=== PATIENT | female | born 1990 | race Caucasian/White ===

== ENCOUNTER 2021-08-29 20:30 | Inpatient (IN) | payer MEDICAID, SELFPAY ==
--- NOTE | 2021-08-29 20:47 | W.ED.PSYCH ---
HPI - Psych General: Chief Complaint: Psychiatric Symptoms Stated Complaint: SI Time Seen by Provider: 08/29/21 20:46 History of Present Illness: HPI Narrative: Ms. Hicks is a 31-year-old lady without significant past medical history presents emergency department with psychiatric concerns. She reports symptoms have been worse since approximately April. She has had increased social stressors and describes difficulty coping. She endorses significant depression and her symptoms of been worsening the point that she now has thoughts of self-harm. She does have a history of near completion of suicide and describes 3 previous episodes that were this severe in the past. She has previously, remotely, seen a psychiatric care provider and has been told that she has bipolar disorder. She saw a counselor today who additionally thought that she has bipolar. She was on medication during the second episode however did not tolerate the effects and has not been on it for a number of years. She otherwise denies medical complaints. No other specific exacerbating or alleviating factors identified. Review of Systems General: Reports: 10 or more systems reviewed and unremarkable except in HPI and below Physical Exam Narrative: EXAM NARRATIVE: GENERAL/CONSTITUTIONAL - well-appearing. No acute distress. Eyes -no scleral icterus, no conjunctival injection ENMT - Atraumatic external nose and ears. Moist mucous membranes NECK - supple. trachea midline CARDIOVASCULAR - regular rate and rhythm. RESPIRATORY -clear to auscultation bilaterally. ABDOMEN/GI - Nontender/Nondistended. MSK - Extremities without obvious deformity or tenderness to palpation SKIN - Warm, Dry NEURO - alert and appropriately oriented. Moves all extremities equally. PSYCH -depressed mood and affect Course ED course: - Patient was seen and evaluated by me at bedside - Patient placed on cardiac monitors, IV access obtained - Initial evaluation notable for exam as noted above, nontoxic, no acute distress. - Labs notable for potassium 3.3, replenishment ordered. Salicylate, Tylenol, and alcohol negative. UDS positive for opiates and marijuana - Based on ED evaluation at this point there is no obvious condition that would preclude the patient from inpatient management of psychiatric concerns. - Psychiatry service contacted and agreed admit the patient. Vital Signs: Vital signs: Vital Signs Temperature 98.1 F 09/02/21 13:39 Pulse Rate 65 09/02/21 13:39 Respiratory Rate 16 09/02/21 13:39 Blood Pressure 104/63 09/02/21 13:39 Pulse Oximetry 97 09/02/21 13:39 MDM - Psych Medical Records: Attestation: I reviewed the patient's medical records. Lab Data: Attestation: I reviewed the patient's lab results. Labs: Lab Results 08/29/21 08/29/21 08/29/21 21:00 21:00 21:00 WBC RBC Hgb Hct MCV MCH MCHC RDW Plt Count MPV Neut % (Auto) Lymph % (Auto) [place] % (Auto) Eos % (Auto) Baso % (Auto) Neut # (Auto) Lymph # (Auto) [place] # (Auto) Eos # (Auto) Baso # (Auto) Nucleated RBC % (a uto) Nucleated RBCs # Sodium Potassium Chloride Carbon Dioxide Anion Gap BUN Creatinine GFR Calculation Glucose Calculated Osmolal ity Calcium Total Bilirubin AST ALT Alkaline Phosphata se Total Protein Albumin Globulin TSH HCG, Qual Negative (Negative) Urine Color Yellow (Yellow) Urine Appearance Clear (CLEAR) Urine pH 5 (5-7) Ur Specific Gravit y 1.015 (1.005-1.030) Urine Protein Neg (Negative) Urine Glucose (UA) Norm (Normal) Urine Ketones Negative (Negative) Urine Blood Neg (Negative) Urine Nitrate Negative (Negative) Urine Bilirubin Neg (Negative) Urine Urobilinogen Norm mg/dL mg/dL (Negative) Ur Leukocyte Jeanne ase Negative (Negative) Salicylates Urine Opiates Scre en Positive ng/mL H ng/mL (Negative) Acetaminophen Ur Barbiturates Sc reen Negative ng/mL ng /mL (Negative) Ur Phencyclidine S crn Negative ng/mL ng /mL (Negative) Ur Amphetamines Sc reen Negative ng/mL ng /mL (Negative) U Benzodiazepines Scrn Negative ng/mL ng /mL (Negative) Urine Cocaine Scre en Negative ng/mL ng /mL (Negative) U Marijuana (THC) Screen Positive ng/mL H ng/mL (Negative) Ethyl Alcohol 08/29/21 08/29/21 22:18 22:18 WBC 8.3 10^3/uL 10^3/ uL (4.0-10.0) RBC 4.13 10^6/uL 10^6 /uL (4.1-5.3) Hgb 12.4 g/dL g/dL (11.5-15.3) Hct 36.8 % L % (37.0-47.0) MCV 89.1 fl fl (81-99) MCH 30.0 pg pg (28.0-34.0) MCHC 33.7 g/dL g/dL (30.0-36.0) RDW 11.9 % L % (12.1-15.1) Plt Count 212 10^3/cmm 10^3 /cmm (130-400) MPV 10.9 fL H fL (7.4-10.4) Neut % (Auto) 39.1 % % Lymph % (Auto) 52.3 % % [place] % (Auto) 6.4 % % Eos % (Auto) 1.6 % % Baso % (Auto) 0.5 % % Neut # (Auto) 3.24 10^3/uL 10^3 /uL (1.8-7.7) Lymph # (Auto) 4.3 10^3/uL 10^3/ uL (0.8-4.8) [place] # (Auto) 0.5 10^3/uL 10^3/ uL (0.2-0.9) Eos # (Auto) 0.1 10^3/uL 10^3/ uL (0.0-0.8) Baso # (Auto) 0.0 10^3/uL 10^3/ uL (0.0-0.1) Nucleated RBC % (a uto) 0 % % Nucleated RBCs # 0.0 /100WBC /100W BC Sodium 140 mmol/L mmol/L (136-145) Potassium 3.3 mmol/L L mmol /L (3.5-5.1) Chloride 103 mmol/L mmol/L (98-107) Carbon Dioxide 27 mmol/L mmol/L (22-29) Anion Gap 13.3 (5-19) BUN 9 mg/dL mg/dL (6-20) Creatinine 0.6 mg/dL mg/dL (0.5-0.9) GFR Calculation 116.6 mL/min mL/m in (90-130) Glucose 90 mg/dL mg/dL (65-115) Calculated Osmolal ity 288 mOsm/kg mOsm/ kg (285-295) Calcium 9.4 mg/dL mg/dL (8.5-10.5) Total Bilirubin 0.2 mg/dL mg/dL (0.15-1.2) AST 12 U/L U/L (0-32) ALT 10 U/L U/L (0-33) Alkaline Phosphata se 91 IU/L IU/L (35-105) Total Protein 7.0 g/dL g/dL (6.6-8.7) Albumin 4.4 g/dL g/dL (3.5-5.2) Globulin 2.6 g/dL g/dL (1.3-4.6) TSH 1.16 uIU/mL uIU/m L (0.27-4.20) HCG, Qual Urine Color Urine Appearance Urine pH Ur Specific Gravit y Urine Protein Urine Glucose (UA) Urine Ketones Urine Blood Urine Nitrate Urine Bilirubin Urine Urobilinogen Ur Leukocyte Jeanne ase Salicylates < 0.3 mg/dL L mg/ dL (3-10) Urine Opiates Scre en Acetaminophen < 5.0 ug/mL L ug/ mL (10-30) Ur Barbiturates Sc reen Ur Phencyclidine S crn Ur Amphetamines Sc reen U Benzodiazepines Scrn Urine Cocaine Scre en U Marijuana (THC) Screen Ethyl Alcohol < 10 mg/dL mg/dL (0-10) EKG Data^: EKG 1: Attestation: I personally reviewed and interpreted this EKG as follows: EKG interpretation date: 08/29/29 EKG interpretation time: 17:24 Interpretation: Twelve-lead EKG shows a regular rhythm at a rate of 73. NV interval 172, QRS duration 92, QTc 445. Right axis deviation. Interpretation: Sinus rhythm. Discharge Plan Discharge Patient Disposition: Admitted As Inpatient Admit Provider: Dany Loya Condition: Stable Discharge Diet: Regular Discharge Activity: Resume usual activity Coding Level of Care Code ED General Magistrate for [facility] [place]
[2021-08-29 20:49] VITALS: BP 137/99; PULSE 124; RESP 18; TEMP 36.3; O2SAT 97; BMI 33.7
[2021-08-29 21:15] LABS: Add Urine Microscopic? NO; Charge for UA Resulting for Rev
[2021-08-29 21:34] LABS: Bilirubin Urine Neg (Negative); Blood Urine Neg (Negative); Glucose Urine UA Norm (Normal); Ketones Urine Negative (Negative); Nitrate Urine Negative (Negative); Protein Urine Neg (Negative); Specific Gravity, Urine 1.015 (1.005-1.030); Urine Appearance Clear (CLEAR); Urine Color Yellow (Yellow); pH Urine 5 (5-7)
[2021-08-29 21:35] LABS: Leukocyte Esterase Urine Negative (Negative); Urobilinogen Urine Norm (Negative)
[2021-08-29 21:36] LABS: Amphetamines Screen Urine Negative (Negative); Barbiturates Screen Urine Negative (Negative); Benzodiazepines Screen Urine Negative (Negative); Cocaine Screen Urine Negative (Negative); Opiate Screen Urine Positive (Negative); PCP Screen Urine Negative (Negative); THC Screen Urine Positive (Negative)
[2021-08-29 21:38] LABS: HCG Qualitative Urine. Negative (Negative)
[2021-08-29 22:25] LABS: Basophils % 0.5 %; Eosinophils # 0.1 10^3/uL (0.0-0.8); Eosinophils % 1.6 %; Hematocrit 36.8 % (37.0-47.0); Hemoglobin 12.4 g/dL (11.5-15.3); Lymphocytes # 4.3 10^3/uL (0.8-4.8); Lymphocytes % 52.3 %; Mean Corpuscular HGB Conc 33.7 g/dL (30.0-36.0); Mean Corpuscular Volume 89.1 fl (81-99); Mean Platelet Volume 10.9 fL (7.4-10.4); Monocytes # 0.5 10^3/uL (0.2-0.9); Monocytes % 6.4 %; Neutrophils # 3.24 10^3/uL (1.8-7.7); Neutrophils % 39.1 %; Nucleated Red Blood Cells % 0 %; Platelet Count 212 10^3/cmm (130-400); Red Blood Count 4.13 10^6/uL (4.1-5.3); Red Cell Distribution Width 11.9 % (12.1-15.1); White Blood Count 8.3 10^3/uL (4.0-10.0)
[2021-08-29] MEDS: ketorolac 30 mg/mL INJ 15 MG IVP (22:48)
[2021-08-29] MEDS: sodium chloride 0.9% 1,000 ML 999 ML IV (22:48)
--- NOTE | 2021-08-29 22:50 | ECG_ITS ---
[facility] Test Date: 2021-08-29 Pat Name: Jonn Hicks Department: Room: Gender: Female Supervisor Communications And Signals: : 1990 Requested By: Mario Amezquita Order Number: [id number] Manda MD: ROSALIND LYLE Measurements Intervals [place] Rate: 73 P: 146 NV: 172 QRS: 124 QRSD: 92 T: 116 QT: 402 QTc: 445 Interpretive Statements SINUS RHYTHM LEFT POSTERIOR FASCICULAR BLOCK [QRS AXIS > 109, INFERIOR Q] No previous ECG available for comparison Electronically Signed On 09-01-2021 0:14:01 CDT by ROSALIND LYLE [email or web address]
[2021-08-29 22:53] VITALS: BP 112/64; PULSE 84; RESP 20; O2SAT 98
[2021-08-29 22:59] LABS: Alanine Aminotransferase 10 U/L (0-33); Albumin Level 4.4 g/dL (3.5-5.2); Alkaline Phosphatase 91 IU/L (35-105); Anion Gap 13.3 (5-19); Aspartate Amino Transferase 12 U/L (0-32); Blood Urea Nitrogen 9 mg/dL (6-20); Calcium 9.4 mg/dL (8.5-10.5); Carbon Dioxide 27 mmol/L (22-29); Chloride 103 mmol/L (98-107); Globulin 2.6 g/dL (1.3-4.6); Glomerular Filtration Rate 116.6 mL/min (90-130); Glucose 90 mg/dL (65-115); Osmolality Calculated 288 mOsm/kg (285-295); Potassium 3.3 mmol/L (3.5-5.1); Sodium 140 mmol/L (136-145); Thyroid Stimulating Hormone 1.16 uIU/mL (0.27-4.20); Total Bilirubin 0.2 mg/dL (0.15-1.2)
[2021-08-29 23:02] LABS: Acetaminophen < 5.0 ug/mL (10-30); Alcohol Level < 10 mg/dL (0-10); Salicylate < 0.3 mg/dL (3-10)
[2021-08-29] MEDS: potassium chloride ER 20 mEq Tablet 40 MEQ PO (23:58)
[2021-08-30] MEDS: lidocaine 2% viscous 15 ML, aluminum-mag hydrox-simethicon 30 ML, sucralfate oral liq 1 GM PO (00:02)
[2021-08-30 00:25] VITALS: BP 112/64
[2021-08-30 01:08] VITALS: BP 150/98; PULSE 84; RESP 17; TEMP 37.1; O2SAT 93
--- NOTE | 2021-08-30 03:08 | PC.ADMIT ---
2923 [facility] Admission Note: The patient,Jonn Hicks,31 y/o, was given written information regarding hospital policies, unit procedures and contact persons. Patient's smoking status: . Vital Signs - 8 hr 08/29/21 20:49 08/29/21 22:53 08/30/21 00:25 Temperature 97.3 F L Pulse Rate [Monitor] 124 H 84 Respiratory Rate 18 20 H Blood Pressure 112/64 Blood Pressure [Right Arm] 137/99 112/64 Pulse Oximetry 97 98 Ms. Hicks is a 31-year-old lady without significant past medical history presents emergency department with psychiatric concerns. She reports symptoms have been worse since approximately April. She has had increased social stressors and describes difficulty coping. She endorses significant depression and her symptoms of been worsening the point that she now has thoughts of self-harm.. She has previously, remotely, seen a psychiatric care provider and has been told that she has bipolar disorder. She saw a counselor today who additionally thought that she has bipolar.. She otherwise denies medical complaints. 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 She states it feels like her Zoloft is not helping. She has been aggressive toward her and reports having ?anger issues.? 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 Patient is a good historian and tearful during admission. Upon assessment patient has good eye contact, is alert/oriented x4 and tearful. Skin assessment is unremarkable. Piercings removed and put with personal property. Patient changed into cotton scrubs and provided snack. During assessment she stated she has had depression for several years and has in the past been diagnosed with depression, bipolar and anxiety. She reports in the past she had SI and thought about putting a gun to her head. She sought treatment at that time. She denies any further attempts. She has had 2 previous psych admissions to [facility] in [facility] approx. 7 and 9 yrs ago. She states she has been on Zoloft for several years and the dose is currently 150mg. Patient states she would like to speak to the Physician about possibly changing her medication. She did drive to [place], [place] earlier in the day and saw a therapist who suggested she drive straight to our ER for Psych eval/admission. Therapist felt it would not be a good idea for patient to be around her children while she is having new onset anger issues. Patient states she is afraid she will get angry enough to hurt her children. Patient reports that her hsb is very supportive and takes good care of their 3 children ages 5, 2 ? and 10 months. She reports her Mother is her closest support person. Patient states she is relieved to be here and is looking forward to a consult regarding her medications. Patient oriented to unit and retired directly to bed. Will continue to monitor and follow plan of care. Q 15 min safety checks per protocol.
[2021-08-30 06:00] VITALS: BP 120/82; PULSE 88; RESP 17; O2SAT 97
[2021-08-30] MEDS: BuSPIRONE 10 mg Tablet 7.5 MG PO ×2 (09:32→18:37)
[2021-08-30] MEDS: sertraline 100 mg Tablet PO (09:32)
[2021-08-30] MEDS: cyclobenzaprine 10 mg Tablet PO (09:34)
[2021-08-30 14:00] VITALS: BP 127/85; PULSE 91; RESP 17; TEMP 36.8; O2SAT 97
--- NOTE | 2021-08-30 14:04 | P.NPUHP_ITS ---
Providers/Chief Complaint Admitting Physician: Dany Loya MD Chief Complaint: Psychiatric Symptoms HPI NPU History of Present Illness Jonn Hicks is a 31 year old female with a history of bipolar disorder mostly untreated, who was admitted for a mixed manic episode that endangers the emotional wellbeing of her children. The ED note states: Ms. Hicks is a 31-year-old lady without significant past medical history presents emergency department with psychiatric concerns. She reports symptoms have been worse since approximately April. She has had increased social stressors and describes difficulty coping. She endorses significant depression and her symptoms of been worsening the point that she now has thoughts of self-harm. She does have a history of near completion of suicide and describes 3 previous episodes that were this severe in the past. She has previously, remotely, seen a psychiatric care provider and has been told that she has bipolar disorder. She saw a counselor today who additionally thought that she has bipolar. She was on medication during the second episode however did not tolerate the effects and has not been on it for a number of years. She otherwise denies medical complaints. No other specific exacerbating or alleviating factors identified. The patient describes developing depression after the of her [id number]. In the last few weeks she has been extremely angry and describes flight of ideas, pressured speech, and decreased need for sleep. She has had periods of euphoria with increased energy and goal-directed activity, along with racing thoughts, pressured speech, risky behavior, and flight of ideas. She is also had depression with the thought that she would kill herself if she did not have 3 children. No active suicidal ideation. She denies any homicidal ideation, but does admit to thinking sometimes that it would be a relief if her and children . She denies auditory and visual hallucinations. The patient says she had a psychiatric evaluation with Dr. Lopez in [place], [place], who diagnosed bipolar disorder. She has been hospitalized for bipolar disorder twice before, 7 and 9 years ago. The patient went through therapy when her parents when she was 7 or 8 years old. She was in therapy for 3- 1/2 years with a therapist from [place], [place] whom she really liked. The therapy ended 4 years ago, when the therapist moved away. Current stressors include having 3 children, and building a new house. Psychiatric history: As above. Substance use history: The patient says she is a social drinker. She smokes marijuana daily. Family history: Her mother takes psychiatric medication, but is private and has not revealed the medications or her diagnoses. The patient's father has anxiety and anger but has not been evaluated. The patient thinks he has a drinking problem. She denies suicide attempts or completions in the family. Psychosocial history: The patient lives in [place], [place] with her and 3 children who are all under 6. 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 Legal history: No legal difficulties. Medical history: She has chronic pain for which she takes Flexeril. She also has a history of chronic and migraine headaches. Meds NPU Home Medications Medication Instructions Recorded Confirmed Last Taken Type buspirone 7.5 mg PO BID 08/30/21 08/30/21 Unknown History cyclobenzaprine 10 mg PO TID PRN 08/30/21 08/30/21 Unknown History sertraline 100 mg PO DAILY 08/30/21 08/30/21 Unknown History Allergies Allergy/AdvReac Type Severity Reaction Status Date / Time No Known Allergies Allergy Verified 08/29/21 20:49 Mental Status Exam MSE Comments: I met with the patient in the day room, and she was dressed in hospital scrubs and appropriately groomed. She was was quite emotional at times but cooperative, interactive, and made good eye contact. No psychomotor agitation or retardation Speech is at a regular rate and rhythm, normal volume, good articulation, not pressured Alert, oriented to person, place, time, and situation Attention and concentration were intact to exam Memory is adequate for the interview Mood is depressed and angry. Affect is labile, angry and tearful at times. Thought process has flight of ideas at times. Thought content: No auditory or visual hallucinations, no suicidal ideation or homicidal ideation. No delusions or paranoia are noted. Insight and judgment are fair. Impulse control is limited by emotional lability. Vitals/I&O/Wt Last Vital Signs Temp 98.7 F 08/30/21 01:08 Pulse 88 08/30/21 06:00 Resp 17 08/30/21 06:00 BP 120/82 08/30/21 06:00 Pulse Ox 97 08/30/21 06:00 10/29/21 10/30/21 10/30/21 22:59 06:59 14:59 Intake Total 1000 / 1000 Balance 1000 / 1000 Weight last 48 hrs Weight 94.801 kg Data NPU : 08/29/21 22:18 08/29/21 22:18 A&P Assessment and plan (1) Bipolar disorder, current episode mixed, moderate: Status: Acute (2) Marijuana abuse, continuous: Status: Acute (3) Anxiety disorder, unspecified: Status: Acute Additional A&P Information This is a 31 year old female with a history of bipolar disorder mostly untreated, who was admitted for a mixed manic episode that endangers the emotional wellbeing of her children. On the day prior to admission, she was angry and yelling at her , which frightened and upset her children. She is not in control of her emotions. She has had 2 previous hospitalizations for similar symptoms and has been treated with Depakote and Seroquel for periods of time. But she has gone off of her medications each time. She has been treated with BuSpar and Zoloft which was recently increased from 50 to 100 mg daily. It may have increased her manic symptoms. RECOMMENDATION AND PLAN: 1. Continue Buspar. Discontinue Zoloft. Add Abilify 10 mg daily for mood stabilization. 2. Continue every 15 minute checks for safety. 3. Encourage individual, group and milieu therapies. Involuntary Hold Information 96 Hour Hold: 96 Hour Involuntary Admission: No Attestations NPU Medical Necessity Statement*: Psychiatric hospitalization is medically necessary to prevent access to lethal means, to reevaluate medication, and to coordinate a safe discharge. Patient will be in the hospital for over 2 midnights. Likely length of stay is 3 to 5 days. Coding Level of Care Code Acute Rivet Sorter for Teddy Simmons Diagnoses Bipolar disorder, current episode mixed, moderate F31.62 Marijuana abuse, continuous F12.10 Anxiety disorder, unspecified F41.9
[2021-08-30] MEDS: hyDROXYzine 25 mg Capsule 50 MG PO (14:21)
[2021-08-30] MEDS: ARIPiprazole 10 mg Tablet PO (14:21)
[2021-08-30 20:31] VITALS: BP 126/89; PULSE 86; RESP 16; TEMP 37; O2SAT 98
[2021-08-31 06:00] VITALS: BP 101/82; PULSE 92; RESP 15; TEMP 36.9; O2SAT 96; BMI 33.7
[2021-08-31] MEDS: cyclobenzaprine 10 mg Tablet PO (10:48)
[2021-08-31] MEDS: ARIPiprazole 10 mg Tablet PO (10:48)
[2021-08-31] MEDS: BuSPIRONE 10 mg Tablet 7.5 MG PO ×2 (10:48→17:04)
[2021-08-31] MEDS: hyDROXYzine 25 mg Capsule 50 MG PO ×2 (12:26→18:04)
--- NOTE | 2021-08-31 13:15 | P.NPUPN_ITS ---
Subjective NPU Subjective: Interval history: Patient presents today reporting she is feeling a little better and she had been when she arrived. She reports that Dr. Loya gave her Abilify and BuSpar and she reports that this is helping her with her symptoms. She reports that she knows she needs to get some therapy so she can start to address some of the issues that led to the hospitalization. Mental Status Exam MSE Comments: This is an obese white female with hospital scrubs on with limited grooming and adequate eye contact. Purple hair. Cooperative with exam in no acute distress. Speech was decreased rate and volume. Mood described as a little bit better, affect subdued. Thought process organized. Thought content: Patient denied suicidal homicidal ideation, there were no delusions reported or noted, she denied any auditory or visual hallucinations. Attention and concentration were intact and memory appeared reliable but none were formally tested. She is alert and oriented x3. Insight and judgment appear fair, impulse control is limited. Vitals/I&O/Wt Last Vital Signs Temp 98.5 F 08/31/21 06:00 Pulse 92 08/31/21 06:00 Resp 15 08/31/21 06:00 BP 101/82 08/31/21 06:00 Pulse Ox 96 08/31/21 06:00 Weight last 48 hrs Weight 94.801 kg Weight 94.801 kg Data NPU : 08/29/21 22:18 08/29/21 22:18 A&P Additional A&P Information (1) Bipolar disorder, current episode mixed, moderate: (2) Marijuana abuse, continuous: (3) Anxiety disorder, unspecified: Additional A&P Information This is a 31 year old female with a history of bipolar disorder mostly untreated, who was admitted for a mixed manic episode that endangers the emotional wellbeing of her children. On the day prior to admission, she was angry and yelling at her , which frightened and upset her children. She is not in control of her emotions. She has had 2 previous hospitalizations for similar symptoms and has been treated with Depakote and Seroquel for periods of time. But she has gone off of her medications each time. She has been treated with BuSpar and Zoloft which was recently increased from 50 to 100 mg daily. It may have increased her manic symptoms. RECOMMENDATION AND PLAN: 1. Continue current medication. 2. Continue every 15 minute checks for safety. 3. Encourage individual, group and milieu therapies. Involuntary Hold Information 96 Hour Hold: 96 Hour Involuntary Admission: No Attestations NPU Medical Necessity Statement*: Psychiatric hospitalization is medically necessary to prevent access to lethal means, to reevaluate medication, and to coordinate a safe discharge. Likely length of stay is 2-4 days. Coding Level of Care Code Acute Bolt Machine Operator for Teddy Simmons
[2021-08-31 14:00] VITALS: BP 121/69; PULSE 73; RESP 17; TEMP 37; O2SAT 98
[2021-08-31] MEDS: blistex lip oint 7 gm Tube 1 APPLIC TOPICAL (17:04)
[2021-08-31 20:11] VITALS: BP 109/79; PULSE 98; RESP 15; TEMP 36.9; O2SAT 95
[2021-09-01 06:00] VITALS: BP 117/71; PULSE 72; RESP 15; TEMP 36.8; O2SAT 97
[2021-09-01] MEDS: acetaminophen 325 mg Tablet 650 MG PO (08:20)
[2021-09-01] MEDS: ARIPiprazole 10 mg Tablet PO (08:20)
[2021-09-01] MEDS: cyclobenzaprine 10 mg Tablet PO ×2 (08:20→20:04)
[2021-09-01] MEDS: BuSPIRONE 10 mg Tablet 7.5 MG PO ×2 (08:20→20:05)
--- NOTE | 2021-09-01 08:21 | PC.NURSE ---
PRN FLEXERIL 10 MG GIVEN PO PER PT C/O MUSCLE SPASMS
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
[2021-09-01] MEDS: hyDROXYzine 25 mg Capsule 50 MG PO ×2 (13:14→22:05)
--- NOTE | 2021-09-01 13:15 | PC.NURSE ---
PRN VISTARIL 50 MG GIVEN PO PER PT C/O STATED ANXIETY
[2021-09-01 14:00] VITALS: BP 99/60; PULSE 76; RESP 16; TEMP 36.3; O2SAT 98
--- NOTE | 2021-09-01 16:57 | W.PM.NPUPNS ---
Subjective NPU Subjective: Interval history: Patient presents today reporting that he has been a struggle here on the unit. She reports that she was hopeful that there would be significant individual therapy while she has been hospitalized. She reports that the Abilify is helping but she feels like the next step for her is definitely therapy. We discussed some of her current challenges including her refusing to let her speak to her children since she left last . She reports that he is saying that he does not think it is good for them to speak with her. 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 She reports that this conflict is classic for the disputes that she and her have. So in part her desire to discharge is to be able to see them since he is only stopping her from interacting with them because her only option is over the phone over the phone. We discussed likely discharge in the next 48 hours. Mental Status Exam MSE Comments: This is an obese white female with hospital scrubs on with limited grooming and adequate eye contact. Purple hair. Cooperative with exam in no acute distress. Speech was decreased rate and volume. Mood described as a little bit better, affect less subdued. Thought process organized. Thought content: Patient denied suicidal or homicidal ideation, there were no delusions reported or noted, she denied any auditory or visual hallucinations. Attention and concentration were intact and memory appeared reliable but none were formally tested. She is alert and oriented x3. Insight and judgment appear fair, impulse control is limited. Vitals/I&O/Wt Last Vital Signs Temp 97.3 F L 09/01/21 14:00 Pulse 76 09/01/21 14:00 Resp 16 09/01/21 14:00 BP 99/60 09/01/21 14:00 Pulse Ox 98 09/01/21 14:00 Weight last 48 hrs Weight 94.801 kg Data NPU : 08/29/21 22:18 08/29/21 22:18 A&P Additional A&P Information (1) Bipolar disorder, current episode mixed, moderate: (2) Marijuana abuse, continuous: (3) Anxiety disorder, unspecified: Additional A&P Information This is a 31 year old female with a history of bipolar disorder mostly untreated, who was admitted for a mixed manic episode that endangers the emotional wellbeing of her children. On the day prior to admission, she was angry and yelling at her , which frightened and upset her children. She is not in control of her emotions. She has had 2 previous hospitalizations for similar symptoms and has been treated with Depakote and Seroquel for periods of time. But she has gone off of her medications each time. She has been treated with BuSpar and Zoloft which was recently increased from 50 to 100 mg daily. It may have increased her manic symptoms. RECOMMENDATION AND PLAN: 1. Continue current medication. 2. Continue every 15 minute checks for safety. 3. Encourage individual, group and milieu therapies. Involuntary Hold Information 96 Hour Hold: 96 Hour Involuntary Admission: No Attestations NPU Medical Necessity Statement*: Psychiatric hospitalization is medically necessary to prevent access to lethal means, to reevaluate medication, and to coordinate a safe discharge. Likely length of stay is 1-3 days. Coding Level of Care Code Acute Research Instrumentation Technician for Teddy Simmons
[2021-09-01] MEDS: dicyclomine 20 mg Tablet PO (20:05)
[2021-09-01] MEDS: trazodone 50 mg Tablet PO (20:05)
[2021-09-01 21:20] VITALS: BP 129/66; PULSE 94; RESP 20; TEMP 36.7; O2SAT 98
--- NOTE | 2021-09-02 05:31 | PC.NURSE ---
Patient up at start of shift. Calm, cooperative, and compliant with care. Interacting well with others. Received PRN Flexeril to good effect at 2003. Received PRN Trazodone at 2004 to poor effect. At 2205 took PRN Vistril for anxiety to good effect. Patient has been up 2x during night to check time and return to bed.
[2021-09-02 05:53] VITALS: BP 104/63; PULSE 65; RESP 16; TEMP 36.7; O2SAT 97
[2021-09-02] MEDS: dicyclomine 20 mg Tablet PO (08:16)
[2021-09-02] MEDS: ARIPiprazole 10 mg Tablet PO (08:16)
[2021-09-02] MEDS: acetaminophen 325 mg Tablet 650 MG PO (08:16)
[2021-09-02] MEDS: BuSPIRONE 10 mg Tablet 7.5 MG PO (08:16)
--- NOTE | 2021-09-02 11:44 | NPU.GN ---
[facility] Group Topic:Mental Health Crossword Puzzle/ Psych Education General Mood of Group: Jonn did great in group she participated with the activity. She was social with this movie writer and other in group. Jonn met with this movie writer after group and was aided by this movie writer to fill out intake form form [facility] at [facility]. 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 That she is going to go reside with her mother to get back on her feet. That she has a job as a [employer] she works [employer]. Jonn has the willingness and readiness to change and help herself. She is hopeful for discharge. She was in a good mood and mindset in group today and reported that the medications are helping her.
[2021-09-02] MEDS: blistex lip oint 7 gm Tube 1 APPLIC TOPICAL (12:31)
--- NOTE | 2021-09-02 13:34 | P.NPUDS_ITS ---
Diagnoses at Discharge Discharge Diagnosis (1) Bipolar disorder, current episode mixed, moderate: Status: Acute (2) Marijuana abuse, continuous: Status: Acute (3) Anxiety disorder, unspecified: Status: Acute Reason for Visit Reason for Visit: Psychiatric Symptoms Brief History: History of Present Illness Jonn Hicks is a 31 year old female with a history of bipolar disorder mostly untreated, who was admitted for a mixed manic episode that endangers the emotional wellbeing of her children. The ED note states: Ms. Hicks is a 31-year-old lady without significant past medical history presents emergency department with psychiatric concerns. She reports symptoms have been worse since approximately April. She has had increased social stressors and describes difficulty coping. She endorses significant depression and her symptoms of been worsening the point that she now has thoughts of self-harm. She does have a history of near completion of suicide and describes 3 previous episodes that were this severe in the past. She has previously, remotely, seen a psychiatric care provider and has been told that she has bipolar disorder. She saw a counselor today who additionally thought that she has bipolar. She was on medication during the second episode however did not tolerate the effects and has not been on it for a number of years. She otherwise denies medical complaints. No other specific exacerbating or alleviating factors identified. The patient describes developing depression after the of her [id number]. In the last few weeks she has been extremely angry and describes flight of ideas, pressured speech, and decreased need for sleep. She has had periods of euphoria with increased energy and goal-directed activity, along with racing thoughts, pressured speech, risky behavior, and flight of ideas. She is also had depression with the thought that she would kill herself if she did not have 3 children. No active suicidal ideation. She denies any homicidal ideation, but does admit to thinking sometimes that it would be a relief if her and children . She denies auditory and visual hallucinations. The patient says she had a psychiatric evaluation with Dr. Lopez in [place], [place], who diagnosed bipolar disorder. She has been hospitalized for bipolar disorder twice before, 7 and 9 years ago. The patient went through therapy when her parents when she was 7 or 8 years old. She was in therapy for 3- 1/2 years with a therapist from [place], [place] whom she really liked. The therapy ended 4 years ago, when the therapist moved away. Current stressors include having 3 children, and building a new house. Psychiatric history: As above. Substance use history: The patient says she is a social drinker. She smokes marijuana daily. Family history: Her mother takes psychiatric medication, but is private and has not revealed the medications or her diagnoses. The patient's father has anxiety and anger but has not been evaluated. The patient thinks he has a drinking problem. She denies suicide attempts or completions in the family. Psychosocial history: The patient lives in [place], [place] with her and 3 children who are all under 6. 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 Legal history: No legal difficulties. Medical history: She has chronic pain for which she takes Flexeril. She also has a history of chronic and migraine headaches. Hospital Course Hospital Course She quickly acclimated to the individual, group about new therapies provided. Her Zoloft was discontinued and Abilify was started at 10 mg p.o. every morning. She was hopeful that she could get more robust individual therapy in the hospital we discussed the way that system is normally work when it comes to individual therapy. Additionally she was struggling with her estranged relationship with her which was going to be some couples counseling in the very least. She told significant improvement was able to contract for safety outside the hospital prior to discharge. During the hospitalization, patient had routine laboratory studies which were within normal limits except for few outliers. Additionally there was a general medical evaluation which was also within normal limits and revealed no new acute processes. Discharge Summary: At the time of discharge, she denied psychosis or lethality. Mood and anxiety were well managed. Patient endorsed a plan to avoid all drugs of abuse and follow-up with the aftercare recommendations of the treatment team. Patient was evaluated and deemed to be absent credible lethality, and had achieved the maximum benefit from an inpatient hospitalization, so was discharged. Involuntary Hold Information 96 Hour Hold: 96 Hour Involuntary Admission: No Mental Status Exam MSE Comments: This is an obese white female with hospital scrubs on with limited grooming and adequate eye contact. Purple hair. Cooperative with exam in no acute distress. Speech was decreased rate and volume. Mood described as better, affect less subdued. Thought process organized. Thought content: Patient denied suicidal or homicidal ideation, there were no delusions reported or noted, she denied any auditory or visual hallucinations. Attention and concentration were intact and memory appeared reliable but none were formally tested. She is alert and oriented x3. Insight and judgment appear fair, impulse control is limited, but improving. Discharge Data Vitals: Last Vital Signs Temp 98.1 F 09/02/21 05:53 Pulse 65 09/02/21 05:53 Resp 16 09/02/21 05:53 BP 104/63 09/02/21 05:53 Pulse Ox 97 09/02/21 05:53 Discharge Plan Discharge Patient Disposition: Home Condition: Stable Prescriptions: New trazodone 50 mg Tablet 50 mg PO BEDTIME PRN (Reason: Sleep) 30 Days Qty: 30 RF: 1 dicyclomine 20 mg Tablet 20 mg PO 0900,2100 30 Days Qty: 60 RF: 1 aripiprazole 10 mg Tablet 10 mg PO DAILY 30 Days Qty: 30 RF: 1 Continued cyclobenzaprine 10 mg tablet 10 mg PO TID PRN (Reason: Muscle Spasm) 30 Days Qty: 30 RF: 1 buspirone 15 mg tablet 7.5 mg PO BID 30 Days Qty: 30 RF: 1 Discontinued sertraline 100 mg tablet 100 mg PO DAILY RF: 0 Discharge Orders: Discharge Order (Routine); Ordered 09/02/21 Ordered By: Saeid Zapata Referrals: [facility] [Other] - 4-7 days Discharge Diet: Regular Discharge Activity: Resume usual activity Patient Instructions: Dicyclomine (By mouth), Trazodone (By mouth), Aripiprazole (By mouth), Opioid Safety Discharge Attestations NPU Time Spent in Discharge Care*: less than 30 min Specific Discharge Activities: Specific discharge activities: educating patient, discussing with piano case and bench assembler/social workers/dc planners, documenting/other paperwork and evaluating patient/reviewing data Coding Level of Care Code Acute Chg FW DC note Diagnoses Bipolar disorder, current episode mixed, moderate F31.62 Marijuana abuse, continuous F12.10 Anxiety disorder, unspecified F41.9
[2021-09-02 13:39] VITALS: BP 104/63; PULSE 65; RESP 16; TEMP 36.7; O2SAT 97
== END 2021-09-02 14:36 | disposition home or self-care (01) | DRG 885 ==
LOC: ER 23:25 → NP 23:42
PROVIDERS: Admitting Provider Psychiatry & Neurology Child & Adolescent Psychiatry; Emergency Provider Emergency Medicine; Visit Provider Psychiatry & Neurology Psychiatry
DX: F31.62 Bipolar disorder, current episode mixed, moderate (principal); F12.10 Cannabis abuse, uncomplicated; F41.9 Anxiety disorder, unspecified
CPT/HCPCS: 80053; 80306; 80307; 81003; 81025; 84443; 85025; 93005; 96361; 96374; 97165; 99285; J1885; J7030

== ENCOUNTER → 2021-10-08 15:35 | Outpatient (BNVA) | payer MEDICAID, SELFPAY | PROVIDERS: Visit Provider Registered Nurse | DX: Z79.899 Other long term (current) drug therapy (principal) | CPT/HCPCS: 36415; 80053; 80061; 80178; 83036 ==

== ENCOUNTER → 2022-01-19 09:52 | Outpatient (BNVA) | payer MEDICAID, SELFPAY | PROVIDERS: Visit Provider Registered Nurse | DX: Z79.899 Other long term (current) drug therapy (principal) | CPT/HCPCS: 80053; 80178; 82306; 83036; 84443; 85025 ==

== ENCOUNTER → 2022-06-26 11:05 | Outpatient (BNVA) | payer OTHER, SELFPAY | PROVIDERS: Visit Provider Dermatology | DX: Z79.899 Other long term (current) drug therapy (principal) | CPT/HCPCS: 80053; 80061; 82306; 82607; 83036; 83540; 84443; 85025 ==

== ENCOUNTER → 2022-10-08 11:45 | Outpatient (BNVA) | payer MEDICAID, SELFPAY ==
[2022-07-03 13:14] VITALS: BP 104/63; BMI 29.5
== END ==
PROVIDERS: PCP Nurse Practitioner Family; Visit Provider Registered Nurse
DX: Z79.899 Other long term (current) drug therapy (principal)
CPT/HCPCS: 80178

== ENCOUNTER → 2023-07-07 11:42 | Outpatient (BNVA) | payer SELFPAY ==
[2022-07-03 13:14] VITALS: BP 104/63; BMI 29.5
== END ==
PROVIDERS: PCP Nurse Practitioner Family; Visit Provider Registered Nurse
DX: Z79.899 Other long term (current) drug therapy (principal); F90.0 Attention-deficit hyperactivity disorder, predominantly inattentive type
CPT/HCPCS: 80053; 80061; 80178; 83036; 85025